=== PATIENT | female | born 1955 | race Caucasian/White ===

== ENCOUNTER 2022-05-07 08:10 | Emergency (ER) | payer SELFPAY ==
[~2022-05-07] VITALS: Ht 157.5 cm; Wt 95.3 kg
--- NOTE | 2022-05-07 08:11 | NUR ---
Pt JOSHUA GUZMÁN, via gurney to bed 09.
[2022-05-07 08:17] VITALS: BP 141/61
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
--- NOTE | 2022-05-07 08:38 | NUR ---
X-Ray at bedside.
[2022-05-07] MEDS: KETOROLAC 30 MG/ML VIAL IM ONE (08:57)
--- NOTE | 2022-05-07 09:00 | NUR ---
CHICO WRAP X 1 APPLIED TO L ANKLE.
--- NOTE | 2022-05-07 09:12 | NUR ---
PT UP FOR D/C BUT IS REFUSING TO LEAVE. PT REQUESTING DILAUDID AND XANAX, DR QUINN MADE AWARE AND STATED SHE WILL NOT GIVE EITHER. PT OFFERED CRUTCHES AND UBER TO WHERE SHE WOULD LIKE TO GO, REFUSING BOTH. ONLY DEMANDING MORE PAIN MEDS.
--- NOTE | 2022-05-07 09:25 | NUR ---
Patient discharged with v/s stable. Written and verbal after care instructions ABOUT ANKLE SPRAIN given and explained. Ambulatory with steady gait. All questions addressed prior to discharge. Advised to follow up with PMD. OFFERED FOOD, UNDERWEAR, PT WEARING WEATHER APPROPRIATE CLOTHING
--- NOTE | 2022-05-07 09:25 | NUR ---
SECURITY CALLED TO ED TO ASSIST PT. GIVEN UNDERWEAR AND FOOD AND PACKET. PT ABLE TO STAND AND AMBULATE
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
== END 2022-05-07 09:25 | disposition home or self-care (01) ==
LOC: MED 08:10
DX: S93.402A Sprain of unspecified ligament of left ankle, initial encounter (principal); I10 Essential (primary) hypertension; W01.0XXA Fall on same level from slipping, tripping and stumbling without subsequent striking against object, initial encounter; Y93.89 Activity, other specified; Y92.89 Other specified places as the place of occurrence of the external cause; Y99.8 Other external cause status
CPT/HCPCS: 73610; 96372; 99283; J1885